=== PATIENT | male | born 1950 | race Caucasian/White ===

== ENCOUNTER → 2024-11-11 | Outpatient (CLI) | payer MEDICARE, OTHER ==
[2024-11-11 11:40] LABS: African American GFR (CKD) 90 (>60 ml/min/1.73 sqM); Blood Urea Nitrogen 12 mg/dL (9-20); Non-African American GFR(CKD) 77 (>60 ml/min/1.73 sqM)
--- NOTE | 2024-11-11 12:44 | CT ---
EXAMINATION TYPE: CT angio chest DATE OF EXAM: 11/11/2024 12:12 PM COMPARISON: None CLINICAL INDICATION: Male, 74 years old with history of J44.9 COPD; TECHNIQUE/CONTRAST: CTA scan of the thorax is performed with IV Contrast, patient injected with 100 mL of Isovue 370, MIP images are created and reviewed these are created on a separate workstation.. CT DLP: 447 mGycm, Automated exposure control for dose reduction was used. FINDINGS: Lungs/Pleura: No evidence of focal consolidation, pleural effusion or pneumothorax. Airway: Large airways are patent. Heart: Size within normal limits. No significant coronary artery calcifications. Vasculature: There is no evidence for a filling defect within the pulmonary vasculature to suggest ac gaetano pulmonary embolism. The pulmonary artery is of normal size. Mediastinum: No gross evidence of adenopathy. Musculoskeletal: Moderate disc degeneration changes are present throughout the thoracolumbar spine se condary to osteophyte formation and facet joint arthropathy. Subcutis lipoma measuring 16 x 14 mm. Fi ndings worse to 17 with endplate sclerosis. Soft Tissues/lymph nodes: Unremarkable. Lower neck: Left multinodular goiter extending into the superior mediastinum. IMPRESSION: 1. No evidence of pulmonary embolism. 2. No evidence for acute process. [facility], , 11/11/2024 12:41 PM
== END | disposition home or self-care (01) ==
LOC: RADCTMAIN 11:04
PROVIDERS: ATTEND Student in an Organized Health Care Education/Training Program
DX: J44.9 Chronic obstructive pulmonary disease, unspecified (principal)
CPT/HCPCS: 82565; 84520; 71275; Q9967

== ENCOUNTER → 2024-12-12 | Outpatient (CLI) | payer MEDICARE, OTHER ==
--- NOTE | 2024-12-12 19:43 | CA ---
Transthoracic Echo Report Name: Remy Bains Age: 74 Gender: M : 1950 Exam Date: 12/12/2024 14:36 Exam Location: [facility] Ht (in): 73 Wt (lb): 230 Ordering Physician: Ishmael Subramanian DO Attending/Referring Phys: Luciana Christine PAC Extractor Operator Solvent Process Rebekah Ferrell RDCS Procedure CPT: Indications: I42.9 CARDIOMYO R07.89 CHEST PAIN R94.31 Cardiac Hx: Technical Quality: Fair Contrast 1: Total Dose (mL): Contrast 2: Total Dose (mL): MEASUREMENTS (Male / Female) Normal Values 2D ECHO LV Diastolic Diameter PLAX 5.6 cm 4.2 - 5.9 / 3.9 - 5.3 cm LV Systolic Diameter PLAX 3.9 cm IVS Diastolic Thickness 1.2 cm 0.6 - 1.0 / 0.6 - 0.9 cm LVPW Diastolic Thickness 1.4 cm 0.6 - 1.0 / 0.6 - 0.9 cm LV Relative Wall Thickness 0.5 RV Internal Dim ED PLAX 3.7 cm LVOT Diameter 2.3 cm LV Diastolic Volume MOD BP 209.6 cm??? 67 - 155 / 56 - 104 cm??? LV Systolic Volume MOD BP 116.6 cm??? - 58 / 19 - 49 cm??? LV Ejection Fraction MOD BP 44.4 % >= 55 % LV Cardiac Index MOD BP 2661.6 cm???/min???m??? LV Diastolic Volume MOD 4C 238.6 cm??? LV Systolic Volume MOD 4C 133.0 cm??? LV Ejection Fraction MOD 4C 44.3 % LV Cardiac Index MOD 4C 3021.4 cm???/min???m??? LV Diastolic Length 4C 9.8 cm LV Systolic Length 4C 8.6 cm LV Diastolic Volume MOD 2C 160.0 cm??? LV Systolic Volume MOD 2C 84.7 cm??? LV Ejection Fraction MOD 2C 47.1 % LV Cardiac Index MOD 2C 2155.7 cm???/min???m??? LV Diastolic Length 2C 8.4 cm LV Systolic Length 2C 7.1 cm LA Volume 58.7 cm??? 18 - 58 / 22 - 52 cm??? LA Volume Index 25.1 cm???/m??? 16 - 28 cm???/m??? DOPPLER LVOT Peak Velocity 93.6 cm/s LVOT Peak Gradient 3.5 mmHg LVOT Velocity Time Integral 22.8 cm LVOT Stroke Volume 90.8 cm??? LVOT Stroke Volume Index 39.7 ml/m??? LVOT Cardiac Index 2596.6 cm???/min???m??? MV Area PHT 2.0 cm??? Mitral E Point Velocity 75.3 cm/s Mitral A Point Velocity 98.7 cm/s Mitral E to A Ratio 0.8 MV Deceleration Time 386.9 ms MV E' Velocity 2.7 cm/s Mitral E to MV E' Ratio 27.5 FINDINGS Left Ventricle Mildly increased septal wall thickness. Severely increased left ventricular diastolic volume. Severely increased left ventricular systolic volume. Moderately decreased left ventricular ejection fraction. Left ventricular ejection fraction is estimated at 45 %. Grade 2 diastolic dysfunction. Right Ventricle Mild right ventricular dilatation. Right ventricular systolic pressure within normal limits. Right Atrium Normal right atrial size. Left Atrium Mildly increased left atrial area. Mitral Valve Structurally normal mitral valve. Mitral valve thickened. Mitral annular calcification. Mild mitral regurgitation. Aortic Valve Trileaflet aortic valve. No aortic valve stenosis or regurgitation. Tricuspid Valve Structurally normal tricuspid valve. Mild tricuspid regurgitation. Pulmonic Valve Structurally normal pulmonic valve. Trace to mild pulmonic regurgitation. Pericardium No pericardial effusion. Aorta Normal size aortic root and proximal ascending aorta. CONCLUSIONS Mildly impaired LV function with EF around 45% Mildly dilated right ventricle Normal pulmonary artery systolic pressure No pericardial effusion Previewed by: Dr. Israel Rincon MD (Electronically Signed) Final Date: 12 December 2024 19:43
== END | disposition home or self-care (01) ==
LOC: RADECHMAIN 14:03
PROVIDERS: ATTEND Family Medicine
DX: I42.9 Cardiomyopathy, unspecified (principal); R07.89 Other chest pain; R94.31 Abnormal electrocardiogram [ECG] [EKG]; I51.7 Cardiomegaly
CPT/HCPCS: 93306

== ENCOUNTER 2024-12-24 15:48 | Observation (INO) | payer OTHER, MEDICARE ==
[2024-12-24] MEDS ORDERED: ALPRAZolam 0.5 MG TAB PO PRN (16:42)
[2024-12-24] MEDS ORDERED: ALPRAZolam 0.25 MG TAB PO PRN (16:42)
[2024-12-24] MEDS ORDERED: NITROGLYCERIN SL TABS 0.4 MG TAB SUBLINGUAL PRN ×2 (16:42→19:06)
--- NOTE | 2024-12-24 16:49 | ED ---
General Adult HPI - General Chief complaint: Chest Pain Stated complaint: chest pain, SOB Time Seen by Provider: 12/24/24 16:00 Source: patient, RN notes reviewed, old records reviewed Mode of arrival: wheelchair Limitations: no limitations - History of Present Illness Initial comments: This is a 74-year-old male who presents to the emergency department who comes in after having taken a stress test today which only lasted a short period time before he got lightheaded dizzy had some chest tightness and some mild shortness of breath. Patient also had an echo that showed some abnormalities. Park Worker Supervisor saw this and wanted the patient to come to the emergency department get worked up and then be admitted for a catheterization in the morning left something acutely was found. Patient currently has no symptoms. - Related Data Home Medications Medication Instructions Recorded Confirmed Aspirin EC [Ecotrin Low Dose] 81 mg PO DAILY 12/24/24 12/24/24 Atorvastatin [Lipitor] 10 mg PO DAILY 12/24/24 12/24/24 Coreg(Unknown Dose) 1 tab PO DAILY 12/24/24 12/24/24 Losartan [Cozaar] 25 mg PO DAILY 12/24/24 12/24/24 Allergies Allergy/AdvReac Type Severity Reaction Status Date / Time No Known Allergies Allergy Verified 12/24/24 17:44 Review of Systems ROS Statement: Those systems with pertinent positive or pertinent negative responses have been documented in the HPI. ROS Other: All systems not noted in ROS Statement are negative. Past Medical History Past Medical History: Unable to Obtain Additional Past Medical History / Comment(s): patient poor historian History of Any Multi-Drug Resistant Organisms: None Reported Past Surgical History: Unable to Obtain, Heart Catheterization Past Psychological History: No Psychological Hx Reported Smoking Status: Light tobacco smoker Past Alcohol Use History: Occasional Past Drug Use History: None Reported General Exam - General Exam Comments Initial Comments: GENERAL: Patient is well-developed and well-nourished. Patient is nontoxic and well- hydrated and is in no acute distress. ENT: Neck is soft and supple. No significant lymphadenopathy is noted. Oropharynx is clear. Moist mucous membranes. Neck has full range of motion without eliciting any pain. EYES: The sclera were anicteric and conjunctiva were pink and moist. Extraocular movements were intact and pupils were equal round and reactive to light. Eyelids were unremarkable. PULMONARY: Unlabored respirations. Good breath sounds bilaterally. No audible rales rhonchi or wheezing was noted. CARDIOVASCULAR: There is a regular rate and rhythm without any murmurs gallops or rubs. ABDOMEN: Soft and nontender with normal bowel sounds. SKIN: Skin is clear with no lesions or rashes and otherwise unremarkable. NEUROLOGIC: Patient is alert and oriented x3. Cranial nerves II through XII are grossly intact. Motor and sensory are also intact. Normal speech, volume and content. Symmetrical smile. MUSCULOSKELETAL: Normal extremities with adequate strength and full range of motion. No lower extremity swelling or edema. No calf tenderness. LYMPHATICS: No significant lymphadenopathy is noted PSYCHIATRIC: Normal psychiatric evaluation. Limitations: no limitations Course Vital Signs 12/24/24 12/24/24 15:59 16:59 Temperature 98.0 F 98.1 F Pulse Rate 68 62 Respiratory 18 18 Rate Blood Pressure 150/80 157/80 O2 Sat by Pulse 99 95 Oximetry Medical Decision Making - Medical Decision Making EKG is interpreted by myself there is a seizure EKG shows a sinus rhythm with frequent PVCs at 71 bpm KS interval is 173 QRS is 130 QT interval is 430 QTc is 453. Patient's EKG shows no ST segment elevation Was pt. sent in by a medical professional or institution ([facility]ANYELL Gee, LIVING COACH, urgent care, hospital, or [facility]...) When possible be specific @ -No Did you speak to anyone other than the patient for history (EMS, parent, family, police, friend...)? What history was obtained from this source @ -No Did you review nursing and triage notes (agree or disagree)? Why? @ -I reviewed and agree with nursing and triage notes Were old charts reviewed (outside hosp., previous admission, EMS record, old EKG, old radiological studies, urgent care reports/EKG's, [facility] records)? Report findings @ -No old charts were reviewed Differential Diagnosis? @ -DM differential chest EKG interpreted by me (3pts min.). @ -As above X-rays interpreted by me (1pt min.). @ -Chest x-ray shows no acute abnormality CT interpreted by me (1pt min.). @ -None done U/S interpreted by me (1pt. min.). @ -None done What testing was considered but not performed or refused? (CT, X-rays, U/S, labs)? Why? @ -None What meds were considered but not given or refused? Why? @ -None Did you discuss the management of the patient with other professionals (professionals i.e. Dr., PA, LIVING COACH, lab, RT, psych nurse, psychiatric social worker supervisor, administrative judge, teacher, aoc airspace control officer, employment evaluator/case manager)? Give summary @ -I spoke with Dr. Perez he agreed to admit the patient Was smoking cessation discussed for >3mins.? @ -No Was critical care preformed (if so, how long)? @ -No Were there social determinants of health that impacted care today? How? (Homelessness, low income, unemployed, alcoholism, drug addiction, transportation, low edu. Level, literacy, decrease access to med. care, [facility], rehab)? @ -No Was there de-escalation of care discussed even if they declined (Discuss DNR or withdrawal of care, Hospice)? DNR status @ -No What co-morbidities impacted this encounter? (DM, HTN, Smoking, COPD, CAD, Cancer, CVA, ARF, Chemo, Hep., AIDS, mental health diagnosis, sleep apnea, morbid obesity)? @ -None Was patient admitted / discharged? Hospital course, mention meds given and route, prescriptions, significant lab abnormalities, going to OR and other pertinent info. @ -Patient's lab work came back within normal range chest x-ray was normal. Dr. Quintero already contacted me and wanted the patient admitted I will admit the patient to Dr. Perez with a consult with Dr. Quintero Undiagnosed new problem with uncertain prognosis? @ -No Drug Therapy requiring intensive monitoring for toxicity (Heparin, Nitro, Insulin, Cardizem)? @ -No Were any procedures done? @ -No Diagnosis/symptom? @ -Chest pain Acute, or Chronic, or Acute on Chronic? @ -acute Uncomplicated (without systemic symptoms) or Complicated (systemic symptoms)? @ -Complicated Side effects of treatment? @ -No Exacerbation, Progression, or Severe Exacerbation? @ -No Poses a threat to life or bodily function? How? (Chest pain, [place], [place], pneumonia, PE, COPD, DKA, ARF, appy, cholecystitis, CVA, Diverticulitis, Homicidal, Suic idal, threat to staff... and all critical care pts) @ -Yes this could lead to an TN and endorgan dysfunction or - Lab Data Result diagrams: 04/23/25 16:52 12/24/24 16:52 Lab Results 12/24/24 12/24/24 12/24/24 Range/Units 16:52 16:52 16:52 WBC 5.84 (4.50-10.00) 10*3/uL RBC 4.50 (4.40-5.60) 10*6/uL Hgb 14.1 (13.0-17.0) g/dL Hct 39.7 (39.6-50.0) % MCV 88.2 (80.0-97.0) fL MCH 31.3 (27.0-32.0) pg MCHC 35.5 (32.0-37.0) g/dL Plt Count 194 (140-440) 10*3/uL MPV 10.3 (9.5-12.2) fL Immature Gran % (Auto) 0.2 % Neutrophils % 67.3 % Lymphocytes % 22.8 % Monocytes % 8.0 % Eosinophils % 1.2 % Basophils % 0.5 % Immature Gran # 0.01 (0.00-0.04) 10*3/uL Neutrophils # 3.93 (1.80-7.70) 10*3/uL Lymphocytes # 1.33 (0.90-5.00) 10*3/uL Monocytes # 0.47 (0.20-1.00) 10*3/uL Eosinophils # 0.07 (0.04-0.35) 10*3/uL Basophils # 0.03 (0.00-0.10) 10*3/uL PT (10.0-12.5) sec INR (<1.2) APTT (22.0-30.0) sec Sodium 138 (137-145) mmol/L Potassium 4.1 (3.5-5.1) mmol/L Chloride 108 H (98-107) mmol/L Carbon Dioxide 20 L (22-30) mmol/L Anion Gap 10 mmol/L BUN 13 (9-20) mg/dL Creatinine 0.82 (0.66-1.25) mg/dL Est GFR (CKD-EPI)AfAm >90 (>60 ml/min/1.73 sqM) Est GFR (CKD-EPI)NonAf 88 (>60 ml/min/1.73 sqM) Glucose 110 H (74-99) mg/dL POC Glucose (mg/dL) (70-110) mg/dL POC Glu Chief Ii Dispatcher ID Calcium 9.1 (8.4-10.2) mg/dL Magnesium 2.0 (1.6-2.3) mg/dL Total Bilirubin 2.2 H (0.2-1.3) mg/dL AST 29 (17-59) U/L ALT 11 (4-49) U/L Alkaline Phosphatase 63 (38-126) U/L Troponin I (0.000-0.034) ng/mL NT-Pro-B Natriuret Pep 1330 pg/mL Total Protein 6.7 (6.3-8.2) g/dL Albumin 4.0 (3.5-5.0) g/dL TSH 0.857 (0.465-4.680) mIU/L 12/24/24 12/24/24 12/24/24 Range/Units 16:52 16:52 16:57 WBC (4.50-10.00) 10*3/uL RBC (4.40-5.60) 10*6/uL Hgb (13.0-17.0) g/dL Hct (39.6-50.0) % MCV (80.0-97.0) fL MCH (27.0-32.0) pg MCHC (32.0-37.0) g/dL Plt Count (140-440) 10*3/uL MPV (9.5-12.2) fL Immature Gran % (Auto) % Neutrophils % % Lymphocytes % % Monocytes % % Eosinophils % % Basophils % % Immature Gran # (0.00-0.04) 10*3/uL Neutrophils # (1.80-7.70) 10*3/uL Lymphocytes # (0.90-5.00) 10*3/uL Monocytes # (0.20-1.00) 10*3/uL Eosinophils # (0.04-0.35) 10*3/uL Basophils # (0.00-0.10) 10*3/uL PT 11.2 (10.0-12.5) sec INR 1.0 (<1.2) APTT 25.0 (22.0-30.0) sec Sodium (137-145) mmol/L Potassium (3.5-5.1) mmol/L Chloride (98-107) mmol/L Carbon Dioxide (22-30) mmol/L Anion Gap mmol/L BUN (9-20) mg/dL Creatinine (0.66-1.25) mg/dL Est GFR (CKD-EPI)AfAm (>60 ml/min/1.73 sqM) Est GFR (CKD-EPI)NonAf (>60 ml/min/1.73 sqM) Glucose (74-99) mg/dL POC Glucose (mg/dL) 147 H (70-110) mg/dL POC Glu Chief Ii Dispatcher ID Sweta Jones Calcium (8.4-10.2) mg/dL Magnesium (1.6-2.3) mg/dL Total Bilirubin (0.2-1.3) mg/dL AST (17-59) U/L ALT (4-49) U/L Alkaline Phosphatase (38-126) U/L Troponin I 0.015 (0.000-0.034) ng/mL NT-Pro-B Natriuret Pep pg/mL Total Protein (6.3-8.2) g/dL Albumin (3.5-5.0) g/dL TSH (0.465-4.680) mIU/L Disposition Clinical Impression: Chest pain Disposition: ADMITTED IP TO THIS HOSP Referrals: Ishmael Subramanian DO [Primary Care Provider] - 1-2 days Time of Disposition: 19:06
[2024-12-24 16:58] LABS: Glucose,Whole Blood 147 mg/dL (70-110)
[2024-12-24] MEDS: LOSARTAN 25 MG TAB PO SCH (17:46)
[2024-12-24] MEDS: carvediloL 3.125 MG TAB PO SCH (17:46)
[2024-12-24 17:50] LABS: Basophils # (A) 0.03 10*3/uL (0.00-0.10); Basophils % (A) 0.5 %; Eosinophils # (A) 0.07 10*3/uL (0.04-0.35); Eosinophils % (A) 1.2 %; HCT 39.7 % (39.6-50.0); HGB 14.1 g/dL (13.0-17.0); Lymphocytes # (A) 1.33 10*3/uL (0.90-5.00); Lymphocytes % (A) 22.8 %; MCH 31.3 pg (27.0-32.0); MCHC 35.5 g/dL (32.0-37.0); MCV 88.2 fL (80.0-97.0); Mean Platelet Volume 10.3 fL (9.5-12.2); Monocytes # (A) 0.47 10*3/uL (0.20-1.00); Neutrophils # (A) 3.93 10*3/uL (1.80-7.70); Neutrophils % (A) 67.3 %; Platelet Count 194 10*3/uL (140-440); RDW 12.5 % (11.5-14.5); WBC 5.84 10*3/uL (4.50-10.00)
[2024-12-24] MEDS: ATORVASTATIN 80 MG TAB PO STA (17:51)
[2024-12-24] MEDS: ASPIRIN 325 MG TAB PO STA (17:51)
--- NOTE | 2024-12-24 17:54 | XR ---
EXAMINATION TYPE: XR chest 2V DATE OF EXAM: 12/24/2024 5:25 PM COMPARISON: CT CLINICAL INDICATION: Male, 74 years old with history of Chest Pain; [facility] TECHNIQUE: XR chest 2V Frontal and lateral views of the chest. FINDINGS: Lungs/Pleura: There is no evidence of pleural effusion, focal consolidation, or pneumothorax. Pulmonary vascularity: Unremarkable. Heart/mediastinum: Cardiomediastinal silhouette is unremarkable. Musculoskeletal: No acute osseous pathology. Other findings: None IMPRESSION: No acute cardiopulmonary disease/process. [facility], , 12/24/2024 5:52 PM
[2024-12-24 17:59] LABS: Prothrombin Time 11.2 sec (10.0-12.5)
[2024-12-24 18:04] LABS: ALT 11 U/L (4-49); African American GFR (CKD) >90 (>60 ml/min/1.73 sqM); Anion Gap 10 mmol/L; Blood Urea Nitrogen 13 mg/dL (9-20); Calcium 9.1 mg/dL (8.4-10.2); Carbon Dioxide 20 mmol/L (22-30); Chloride 108 mmol/L (98-107); Glucose 110 mg/dL (74-99); Non-African American GFR(CKD) 88 (>60 ml/min/1.73 sqM); Sodium 138 mmol/L (137-145); Total Bilirubin 2.2 mg/dL (0.2-1.3); Total Protein 6.7 g/dL (6.3-8.2)
[2024-12-24 18:10] LABS: AST 29 U/L (17-59); Alkaline Phosphatase 63 U/L (38-126); Potassium 4.1 mmol/L (3.5-5.1)
[2024-12-24] MEDS: SODIUM CHLORIDE 0.9% 1,000 ML in EMPTY BAG 1 BAG IV SCH (20:02)
[2024-12-24] MEDS: NITROGLYCERIN OINT 1 INCH/GM PACKET TOPICAL SCH (23:07)
[2024-12-24] MEDS: ATORVASTATIN 40 MG TAB PO SCH (23:07)
--- NOTE | 2024-12-25 02:18 | P.HPIM ---
History of Present Illness H&P Date: 12/24/24 Patient is a 74-year-old male with hypertension, hyperlipidemia here for evaluation of chest tightness. Patient reported that he was seen for an exercise stress test today however the test was aborted because he could only last for 1 min and 43 seconds in which he had experienced chest pressure that was substernal and nonradiating with associated shortness of breath, dizziness and lightheadedness. Echo was done during the stress test and did show some abnormalities. Escort Patients evaluating the patient at the time wanted the patient evaluated in the emergency department and to be admitted for heart catheterization in the morning. He denied palpitations, nausea, vomiting, focal weakness, abdominal pain, loss of consciousness. Echo done on December 12 2024 that showed EF 45% with mildly dilated right ventricle. On admission: Vitals: Temperature 98 Fahrenheit, pulse rate 68, respiratory rate 18, blood pressure 150/80, O2 saturation 99% on room air Labs: WBC 5.84, hemoglobin 14.1, bicarb 28, BUN 13, creatinine 0.82, glucose 110, potassium 4.1, magnesium 2, calcium 9.1. Troponin 0.0 15, proBNP 1330. TSH 0.857. Liver enzymes unremarkable. Coagulation panel unremarkable. Imaging: EKG independently interpreted showed sinus rate with a rate of 71 bpm, SD interval 173 MS prolonged QRS with 130 MS, PVCs noted, QTc 453 MS. Chest x- ray shows no acute cardiopulmonary disease ED documentation reviewed. Aspirin Nitro-Bid ointment and Lipitor initiated in the ED Review of systems: Pertinent positives and negatives as discussed in HPI, a complete review of systems was performed and all other systems are negative. Social history: Tobacco: Active smoker. Smokes 2 to 3 cigarettes a day. Has attempted to quit multiple times longest time he stopped was 15 years. Alcohol: Occasional alcohol intake Recreational drugs: Denied history of recreational or illicit drug use Travel: No recent travel Physical examination: Vital signs reviewed General: non toxic, no distress, appears at stated age, room air Derm: no unusual rashes/lesions, warm Head: atraumatic, normocephalic, symmetric Eyes: EOMI, anicteric sclera, pupils equal round reactive to light ENT: Nose and ears atraumatic Neck: No cervical lymphadenopathy, trachea midline, supple Mouth: no lip lesion, mucus membranes moist Cardiovascular: S1S2 reg, no murmur Lungs: CTA bilateral, no rhonchi, no rales, no accessory muscle use Abdominal: soft, nondistended, nontender to palpation, no guarding Ext: muscle strength 5 out of 5 in all 4 extremities grossly, no gross muscle atrophy, no contractures, positive dorsalis pedis pulse bilateral, no edema Neuro: CN II-XI grossly intact, no gross focal neuro deficits Psych: Alert and oriented x 3, appropriate affect and mood Assessment/Plan: 74-year-old male with hypertension, hyperlipidemia and is an active smoker here for evaluation of chest pressure after positive stress test. The patient is admitted with an anticipated greater than 2 midnight stay for evaluation of CAD and cardiomyopathy Active: #. CAD, likely occlusive #. Cardiomyopathy, likely ischemic with EF 45% December 2024 -Patient has positive exercise stress test -Troponin 0.015 -EKG showed independently interpreted showed sinus rate with a rate of 71 bpm, SD interval 173 MS prolonged QRS with 130 MS, PVCs noted, QTc 453 MS -Cardiac monitoring -Supplemental oxygen as needed -Heart healthy diet. NPO at midnight -Trend troponin -EKG as needed -Nitroglycerin prn for chest pain. 0.4 mg PO or Nitrobid topical -Continue with aspirin 81 mg daily -Continue lipitor 40 mg daily -Check lipid panel, TSH, A1c -Maintain Mag >2 and K >4 -Cardiology consulted. Plan for cath in the morning Chronic Conditions: #. Hyperlipidemia #. Hypertension -Continue losartan and Coreg F: Oral intake N: Heart healthy diet A: Ambulate as needed DVT ppx: SCDs CODE STATUS: Full Discussed with: Patient Anticipated discharge place: Home Brooklynn Anguiano MD PGY-1 Internal Medicine Dictation was produced using Reds[employer] dictation software. please excuse any grammatical, word or spelling errors. I have seen and evaluated the patient today. Discussed with the resident and agree with the residents finding and plan as documented in the resident's note 74 YO M who had failed stress test today who was directed to go to the ER for admission for [facility] Past Medical History Past Medical History: Unable to Obtain Additional Past Medical History / Comment(s): patient poor historian History of Any Multi-Drug Resistant Organisms: None Reported Past Surgical History: Unable to Obtain, Heart Catheterization Past Psychological History: No Psychological Hx Reported Smoking Status: Light tobacco smoker Past Alcohol Use History: Occasional Past Drug Use History: None Reported Medications and Allergies Home Medications Medication Instructions Recorded Confirmed Type Aspirin EC [Ecotrin Low Dose] 81 mg PO DAILY 12/24/24 12/24/24 History Atorvastatin [Lipitor] 10 mg PO DAILY 12/24/24 12/24/24 History Coreg(Unknown Dose) 1 tab PO DAILY 12/24/24 12/24/24 History Losartan [Cozaar] 25 mg PO DAILY 12/24/24 12/24/24 History Allergies Allergy/AdvReac Type Severity Reaction Status Date / Time No Known Allergies Allergy Verified 12/24/24 17:44 Physical Exam Vitals: Vital Signs Temp Pulse Resp BP Pulse Ox 12/24/24 16:59 98.1 F 62 18 157/80 95 12/24/24 15:59 98.0 F 68 18 150/80 99 Intake and Output 12/24/24 12/24/24 12/24/24 06:59 14:59 22:59 Other: Weight 104.326 kg Results CBC & Chem 7: 12/24/24 16:52 12/24/24 16:52 Labs: Abnormal Lab Results - Last 24 Hours (Table) 12/24/24 12/24/24 Range/Units 16:52 16:57 Chloride 108 H (98-107) mmol/L Carbon Dioxide 20 L (22-30) mmol/L Glucose 110 H (74-99) mg/dL POC Glucose (mg/dL) 147 H (70-110) mg/dL Total Bilirubin 2.2 H (0.2-1.3) mg/dL
[2024-12-25 02:45] LABS: Chol/HDL Ratio 2.66 Ratio; LDL Cholesterol,Calculated 49.6 mg/dL (0.0-131.0); VLDL Calculation 15.96 mg/dL (5.00-40.00)
[2024-12-25] MEDS ORDERED: HEPARIN SODIUM,PORCINE (1 ML) 2,500 UNIT in SODIUM CHLORIDE 0.9% 250 ML IRRIGATION PRN (07:00)
[2024-12-25] MEDS ORDERED: HEPARIN SODIUM,PORCINE 10,000 UNIT in SODIUM CHLORIDE 0.9% 1,000 ML IRRIGATION PRN (07:00)
[2024-12-25] MEDS: ASPIRIN 81 MG PO SCH (08:38)
[2024-12-25] MEDS ORDERED: ASPIRIN 325 MG TAB PO SCH (09:00)
[2024-12-25] MEDS: ASPIRIN 81 MG PO STA (10:10)
[2024-12-25 10:47] LABS: Chol/HDL Ratio 2.95 Ratio; LDL Cholesterol,Calculated 46.3 mg/dL (0.0-131.0); VLDL Calculation 19.08 mg/dL (5.00-40.00)
[2024-12-25] MEDS: MIDAZOLAM 2 MG/2 ML VIAL IVP ONE ×2 (10:56→10:59)
[2024-12-25] MEDS: fentaNYL (PF) 50 MCG/ML 2 ML AMP IVP ONE (10:58)
[2024-12-25] MEDS: LIDOCAINE 1% INJ 10MG/ML (20 ML MDV) SQ ONE (10:59)
[2024-12-25] MEDS: VERAPAMIL SYRINGE (5 MG/10 ML) INTRAARTER ONE (11:00)
[2024-12-25] MEDS: HEPARIN SODIUM 1,000 UN/ML (10ML VL) IV ONE (11:04)
[2024-12-25] MEDS: IV FLUID CONTINUATION 1,000 ML IV ONE ×2 (11:11→11:12)
[2024-12-25] MEDS: HEPARIN SODIUM,PORCINE (1 ML) 2,500 UNIT in SODIUM CHLORIDE 0.9% 250 ML IRRIGATION ONE (11:12)
[2024-12-25] MEDS: HEPARIN SODIUM,PORCINE 10,000 UNIT in SODIUM CHLORIDE 0.9% 1,000 ML IRRIGATION ONE (11:13)
[2024-12-25] MEDS: IOPAMIDOL-370 100ML BTL INJ ONE ×2 (11:14)
--- NOTE | 2024-12-25 11:31 | P.CRDCN ---
History of Present Illness Consult date: 12/25/24 Consult reason: chest pain History of present illness: This is a 74-year-old male patient of Dr. Quintero with past medical history of hypertension, dyslipidemia. Patient has been following in the office due to complaints of chest heaviness and shortness of breath with minimal activity. Symptoms have been going on for more than 6 months. Patient underwent stress test yesterday which was positive for ischemia and patient was advised to come into the hospital to be admitted to undergo cardiac catheterization. Patient denies chest pain at rest. He does have chest pain with minimal activity. Blood pressure 143/87, heart rate 53. Pulse ox 98% on room air. -EKG: Sinus rhythm with PVCs -Chest x-ray: No acute process. -Laboratory studies: Troponins negative x 3. CBC and INR within normal limits. BUN 13, creatinine 0.82, potassium 4.1. Triglycerides 95, cholesterol 99, LDL 46. TSH 0.857. -Home cardiac medications: Aspirin 81 mg daily, Coreg 3.125 mg twice daily, losartan 25 mg daily, atorvastatin 20 mg daily. - Echocardiogram performed at [facility] on 12/12/2024 revealed EF 45%, mildly dilated right ventricle, normal pulmonary artery systolic pressure. No pericardial effusion. Review Of Systems: At the time of my exam: CONSTITUTIONAL: Denies fever or chills. HEENT: Denies blurred vision, vision changes, or eye pain. Denies hemoptysis CARDIOVASCULAR: Denies chest pain. Denies orthopnea. Denies PND. Denies palpitations RESPIRATORY: Denies shortness of breath. Reports chest pain with activity. GASTROINTESTINAL: Denies abdominal pain. Denies nausea or vomiting. HEMATOLOGIC: Denies bleeding disorders. GENITOURINARY: Denies any blood in urine. SKIN: Denies puritis. Denies rash. Physical examination: Gen: This is 74-year-old male in no acute distress VS: reviewed HEENT: Head is atraumatic, normocephalic. Pupils equal, round. Sclerae is anicteric. NECK: Supple. No JVD. LUNGS: Clear to auscultation. No wheezes or rhonchi. No intercostal retractions. HEART: Regular rate and rhythm. No murmur. ABDOMEN: Soft No tenderness. EXTREMITIES: No pedal edema. No calf tenderness. NEUROLOGICAL: Patient is awake, alert and oriented x3. Assessment: Unstable angina Abnormal stress echocardiogram Hypertension Dyslipidemia Cardiomyopathy with EF 45%, ischemic versus nonischemic Plan: Resume patient's home cardiac medications Patient has been started on Nitro-Bid ointment every 6 hours Patient has been scheduled for cardiac catheterization with Dr. Quintero today Further recommendations to follow based upon clinical course Thank you kindly for this consultation. Nurse practitioner note has been reviewed, I agree with documented findings and plan of care. Patient was seen and examined. Past Medical History Past Medical History: Unable to Obtain Additional Past Medical History / Comment(s): patient poor historian History of Any Multi-Drug Resistant Organisms: None Reported Past Surgical History: Unable to Obtain, Heart Catheterization Past Psychological History: No Psychological Hx Reported Smoking Status: Light tobacco smoker Past Alcohol Use History: Occasional Past Drug Use History: None Reported Medications and Allergies Home Medications Medication Instructions Recorded Confirmed Type Aspirin EC [Ecotrin Low Dose] 81 mg PO DAILY 12/24/24 12/24/24 History Atorvastatin [Lipitor] 10 mg PO DAILY 12/24/24 12/24/24 History Coreg(Unknown Dose) 1 tab PO DAILY 12/24/24 12/24/24 History Losartan [Cozaar] 25 mg PO DAILY 12/24/24 12/24/24 History Allergies Allergy/AdvReac Type Severity Reaction Status Date / Time No Known Allergies Allergy Verified 12/24/24 17:44 Physical Exam Vitals: Vital Signs Temp Pulse Pulse Resp BP BP Pulse Ox 12/25/24 04:00 53 L 14 136/78 96 12/25/24 01:39 56 L 16 12/24/24 22:21 97.3 F L 58 L 14 132/72 96 12/24/24 21:32 98.0 F 58 L 20 150/93 97 12/24/24 20:37 97.9 F 56 L 17 140/95 99 12/24/24 20:32 56 L 12/24/24 16:59 98.1 F 62 18 157/80 95 12/24/24 15:59 98.0 F 68 18 150/80 99 Intake and Output 12/24/24 12/25/24 12/25/24 22:59 06:59 14:59 Output Total 400 Balance -400 Output: Urine 400 Other: # Voids 1 Weight 104.326 kg 104.3 kg Results 12/24/24 16:52 12/24/24 16:52 Cardiac Enzymes 12/24/24 12/24/24 12/24/24 Range/Units 16:52 16:52 20:26 AST 29 (17-59) U/L Troponin I 0.015 0.014 (0.000-0.034) ng/mL 12/24/24 Range/Units 23:17 AST (17-59) U/L Troponin I 0.014 (0.000-0.034) ng/mL Coagulation 12/24/24 Range/Units 16:52 PT 11.2 (10.0-12.5) sec APTT 25.0 (22.0-30.0) sec Lipids 12/24/24 Range/Units 16:52 Triglycerides 79.80 (0.00-149.00) mg/dL Cholesterol 105.00 (0.00-200.00) mg/dL HDL Cholesterol 39.40 L (40.00-60.00) mg/dL Cholesterol/HDL Ratio 2.66 Ratio CBC 12/24/24 Range/Units 16:52 WBC 5.84 (4.50-10.00) 10*3/uL RBC 4.50 (4.40-5.60) 10*6/uL Hgb 14.1 (13.0-17.0) g/dL Hct 39.7 (39.6-50.0) % Plt Count 194 (140-440) 10*3/uL Comprehensive Metabolic Panel 12/24/24 Range/Units 16:52 Sodium 138 (137-145) mmol/L Potassium 4.1 (3.5-5.1) mmol/L Chloride 108 H (98-107) mmol/L Carbon Dioxide 20 L (22-30) mmol/L BUN 13 (9-20) mg/dL Creatinine 0.82 (0.66-1.25) mg/dL Glucose 110 H (74-99) mg/dL Calcium 9.1 (8.4-10.2) mg/dL AST 29 (17-59) U/L ALT 11 (4-49) U/L Alkaline Phosphatase 63 (38-126) U/L Total Protein 6.7 (6.3-8.2) g/dL Albumin 4.0 (3.5-5.0) g/dL Current Medications Generic Name Dose Route Start Last Admin Trade Name Freq PRN Reason Stop Dose Admin Alprazolam 0.25 mg 12/24/24 16:42 Alprazolam 0.25 Mg Tab PO Q6HR PRN Mild Anxiety Alprazolam 0.5 mg 12/24/24 16:42 Alprazolam 0.5 Mg Tab PO Q6HR PRN Moderate Anxiety Aspirin 81 mg 12/25/24 09:00 Aspirin 81 Mg PO DAILY MARLYS Atorvastatin Calcium 40 mg 12/24/24 21:00 12/24/24 23:07 Atorvastatin 40 Mg Tab PO Not Given HS MARLYS Carvedilol 3.125 mg 12/24/24 18:00 12/25/24 06:14 Carvedilol 3.125 Mg Tab PO 3.125 mg BID-W/MEALS MARLYS Administration Heparin Sodium (Porcine) 10, 1,001 mls @ 999 mls/hr 12/25/24 07:00 000 unit/ Sodium Chloride IRRIGATION 12/25/24 23:00 ONCE PRN INTRA-OP Heparin Sodium (Porcine) 2,500 250.5 mls @ 250 mls/hr 12/25/24 07:00 unit/ Sodium Chloride IRRIGATION 12/25/24 23:00 ONCE PRN INTRA-OP Sodium Chloride 1,000 ml/ IV 1,000 mls @ 104.326 mls/hr 12/24/24 16:45 12/03 12/26 05:28 Solution IV Not Given .[id number] MARLYS 1 ML/KG/HR Losartan Potassium 25 mg 12/24/24 18:00 12/24/24 17:48 Losartan 25 Mg Tab PO Not Given DAILY MARLYS Nitroglycerin 0.4 mg 12/24/24 16:42 Nitroglycerin Sl Tabs 0.4 Mg Tab SUBLINGUAL Q5M PRN Chest Pain Nitroglycerin 1 inch 12/25/24 00:00 12/25/24 05:28 Nitroglycerin Oint 1 Inch/Gm Packet TOPICAL Not Given Q6HR MARLYS Intake and Output 12/24/24 12/25/24 12/25/24 22:59 06:59 14:59 Output Total 400 Balance -400 Output: Urine 400 Other: # Voids 1 Weight 104.326 kg 104.3 kg 12/24/24 16:52 12/24/24 16:52
--- NOTE | 2024-12-25 11:33 | P.CARDCATH ---
Date of Procedure: 12/25/24 Description of Procedure: DIAGNOSTIC CORONARY ANGIOGRAPHY and LEFT HEART CATH REPORT PROCEDURES PERFORMED: Left heart catheterization Selective coronary angiography Moderate conscious sedation 12 mins Right radial access INDICATION: Unstable angina BRIEF HPI: 74-year-old male with history of hypertension dyslipidemia presented to cardiology office because of increased worsening dyspnea on shortness of breath along with substernal chest heaviness with minimal activity. For this he had a echocardiogram and a stress test. His echocardiogram showed an EF of 40% with globally reduced LV systolic function with no major valvular abnormality. He had a stress test done but while doing the stress test he was only able to walk for a minute and had to stop because of chest pressure and shortness of breath. His resting ECG shows sinus rhythm with mild interventricular conduction delay with intermittent PVCs. CONSENT: I have explained the procedural steps of above-mentioned procedures in layman's terms to the patient. I discussed the risks (including but not limited to stroke, emergent vascular or cardiac surgery or ), benefits and alternative therapies for the above-mentioned procedure. I discussed the risks of sedation/analgesia and blood product administration (if indicated). The andrei ent has indicated understanding and acceptance of these risks. Conscious Sedation: Patient's ECG, heart rate, blood pressure, pulse oximetry were monitored throughout the duration of procedure under my direct supervision. 2 mg Versed and 50 mcg Fentanyl were used for induction of moderate conscious sedation. Total duration of moderate concious sedation 12 minutes. PROCEDURAL DETAILS: Patient was prepped and draped in sterile fashion. 1% lidocaine was infiltrated over the right radial artery. Right radial access was obtained via modified seldinger technique. . Medications: 5mg of verapamil was administed in the radial sheet. 6000 Units of Heparin was administed once the catheter reached the aortic root Wires and Catheter used: J wire was advanced under fluroscopy to get to aortic r oot. 5 finnish JR 4 diagnostic catheter was utilized obtain left ventricular pressure and pressure gradint across aortic valve. 5 finnish JR 4 diagnostic catheter was used to selectively engage the right coronary ostium. 5 finnish JL 3.5 diagnostic catheter was utilized to selectively engage the left coronary ostium. Angiographic images were reviewed in detail. Catheter and wire were removed. Radial sheet was flushed. The right radial sheath was removed and a TR band was placed. Patent hemostasis was achieved. The patient tolerated the procedure well. Patient was transported back to the post catheterization holding area in stable condition. TECHNICAL DETAILS Total contrast used: Isovue [60 ml] Complications: [none] Estimated Blood loss: less than 15 ml HEMODYNAMICS: Aortic Pressure: 110/70 mmHg. LV pressure: 112/5 mmHg. LVEDP 12 mmHg. There was no significant gradient across the aortic valve. SELECTIVE CORONARY ARTERIOGRAPHY: LEFT MAIN: The left main is short and large caliber vessel. It trifurcates into the LAD, ramus and circumflex. Left main appears angiographically normal. LEFT ANTERIOR DESCENDING CORONARY ARTERY: LAD is large caliber and reaches up to the apex. Proximal LAD appears angiographically patent. Mid LAD at the bifurcation site of diagonal 2 branch has haziness with 40 to 50% stenosis. Distal LAD appears angiographically patent. LAD gives rise to 3 diagonal branches. The diagonal branches are small and appears angiographically patent RAMUS : Large caliber appears angiographically patent. Reaches up to the distal lateral wall. LEFT CIRCUMFLEX CORONARY ARTERY: It is nondominant vessel. Left circumflex is a moderate caliber vessel. Proximal and mid LCx has mild luminal irregularities. It gives rise to a medium size OM1 branch which appears angiographically patent. And a small AV groove branch which appears any graphically patent. RIGHT CORONARY ARTERY: Dominant vessel. RCA is moderate caliber vessel. Proximal mid RCA has 10 to 20% disease. Distal RCA has mild luminal irregularities. Distally RCA bifurcates into PDA and PL branches which appears angiographically patent IMPRESSION: 40 to 50% mid LAD disease 10 to 20% calcific proximal and mid RCA disease Mild luminal irregularities in LCx Normal LVEDP PLAN: Medical management for mild obstructive CAD Medical management for nonischemic cardiomyopathy Continue aspirin, Lipitor 40, Coreg 3.125 twice daily. Increase losartan to 50 mg daily, Aldactone 25 mg daily, Farxiga 10 mg daily Recommend outpatient cardiac rehab Recommend outpatient PFT Performing Physician Martin Quintero MD, FACC, RPVI Thank you for allowing [facility] to participate in this patient's care. Feel free to reach out in case of any followup questions.
[2024-12-25] MEDS ORDERED: RX INFO: IV CONTRAST WAS GIVEN 1 EACH MISC MISCELLANE PRN (11:35)
[2024-12-25] MEDS: SODIUM CHLORIDE 0.9% 1,000 ML IV SCH (12:00)
--- NOTE | 2024-12-25 13:06 | P.PN ---
Subjective Progress Note Date: 12/25/24 Hospital course: Patient is a pleasant 74-year-old male with a past medical history of hypertension, hyperlipidemia, and nicotine dependence. He presented to the emergency department on with a chief complaint of chest pain/tightness. Patient was undergoing an outpatient stress test which was reportedly aborted secondary to patient's development of chest pressure. Echocardiogram was also reportedly done during this time which was reported to reveal some abnormalities and patient was sent to the emergency department for evaluation with plans for admission and to undergo cardiac cath. Upon arrival to our facility, patient underwent evaluation in emergency department. Vital signs upon arrival show blood pressure 150/80, heart rate 68, respiratory rate 18, temp 98.0 F, and SpO2 of 99% on room air. EKG completed showing normal sinus rhythm with T wave inversion in lateral leads I, aVL, V5 and V6 and occasional PVCs.. Chest x-ray completed negative for acute cardiopulmonary process. Labs completed and reviewed. CBC unremarkable. Coagulation profile normal findings. BMP showing non-anion gap metabolic acidosis with chloride of 108, bicarb of 28, and anion g ap of 10. Blood glucose was 110. Calcium 9.1. Magnesium 2.0. Liver profile showing hyperbilirubinemia with an elevated total bili of 2.2 otherwise normal findings. Troponin was 0.015 with proBNP of 1330. Patient was admitted under our services with consultation to cardiology. Troponins trended overnight resulting at 0.015, 0.014, 0.014. Hemoglobin A1c 5.1%. Lipid profile unremarkable with exception of low HDL of 39.40. TSH normal findings at 0.857. Physical exam: Patient seen and fully evaluated at bedside this morning. He was awaiting to be taken down for cardiac catheterization. He currently denies having any chest pain or pressure or any complaints at rest. Vital signs reviewed and stable. General: Nontoxic, no distress and appears stated age. Derm: Skin warm and dry, normal coloration for ethnicity. Head: Atraumatic, normocephalic and symmetric. Eyes: EOM's intact, no lid lag, and anicteric sclera Mouth: no lip lesions, mucus membranes moist Cardiovascular: regular rate and rhythm with normal S1S2, no murmur, positive posterior tibial pulses bilaterally, and cap refill < 2 seconds. Lungs: Respirations even, regular, and unlabored on room air. Lungs CTA bila terally, no rhonchi, no rales, no wheezing, and no accessory muscle usage. Abdominal: soft, nontender to palpation, no guarding, no appreciable organomegaly Ext: ROM intact. No gross muscle atrophy, no edema, no contractures Neuro: Speech clear, face symmetrical and CN II-XII grossly intact with no noted focal neuro deficits Psych: Alert and oriented to person, place, time, and situation. Appropriate and pleasant affect. Assessment and Plan of Care: Unstable angina with abnormal stress echocardiogram Cardiomyopathy with reduced EF of 45%, unclear if ischemic versus pending cardiac catheterization Hypertension Hyperlipidemia -Cardiology following, discussed plan of care with solvent plant treater and cardiac SCREW DRIVER OPERATOR. Patient undergoing cardiac catheterization today at 11:30 AM -Telemetry monitoring -Troponins trended overnight resulting at 0.015, 0.014, 0.014. Hemoglobin A1c 5.1%. Lipid profile unremarkable with exception of low HDL of 39.40. -Aspirin 81 mg daily, atorvastatin 40 mg nightly, carvedilol 3.125 mg twice daily, Farxiga 10 mg daily, losartan 50 mg daily, and Aldactone 25 mg daily. -Echocardiogram performed at [facility] on 12/12/2024 reported to have revealed a reduced EF 45%, mildly dilated right ventricle, normal pulmonary artery systolic pressure. No pericardial effusion. Nicotine dependence -Patient declined need for nicotine patch. Educated on importance of smoking cessation. Data and imaging reviewed: -Echocardiogram performed at [facility] on 12/12/2024 reported to have revealed a reduced EF 45%, mildly dilated right ventricle, normal pulmonary artery systolic pressure. No pericardial effusion. -Vital signs reviewed. Blood pressure 143/87, heart rate 51, respiratory rate 18, temp 98.0 F, and SpO2 of 98% on room air. -Morning labs reviewed.Troponins trended overnight resulting at 0.015, 0.014, 0.014. Hemoglobin A1c 5.1%. Lipid profile unremarkable with exception of low HDL of 39.40. TSH normal findings at 0.857. CODE STATUS: Full code DVT prophylaxis: Lovenox Discussed with: Patient, RN, solvent plant treater, and cardiac SCREW DRIVER OPERATOR Anticipated discharge date: Pending clinical course Anticipated discharge place: Home Patient was seen independently by Nurse Pracitioner. This document was prepared using [employer] dictation software. Please allow for errors in department manager, while rare they do occur. James Sadler SCREW DRIVER OPERATOR rendered care for this patient independently, reviewed the findings and plan as documented in the note above and agree with plan. I did not physically speak with or examine the patient on this date. Objective - Vital Signs Vital signs: Vital Signs Temp 97.3 F L 12/24/24 22:21 Pulse 53 L 12/25/24 04:00 Resp 14 12/25/24 04:00 BP 136/78 12/25/24 04:00 Pulse Ox 96 12/25/24 04:00 FiO2 Intake & Output 12/24/24 12/25/24 12/25/24 18:59 06:59 18:59 Output Total 400 Balance -400 Weight 104.326 kg 104.3 kg Output: Urine 400 Other: # Voids 1 - Labs CBC & Chem 7: 12/24/24 16:52 12/24/24 16:52 Labs: Abnormal Lab Results - Last 24 Hours (Table) 12/24/24 12/24/24 Range/Units 16:52 16:57 Chloride 108 H (98-107) mmol/L Carbon Dioxide 20 L (22-30) mmol/L Glucose 110 H (74-99) mg/dL POC Glucose (mg/dL) 147 H (70-110) mg/dL Total Bilirubin 2.2 H (0.2-1.3) mg/dL HDL Cholesterol 39.40 L (40.00-60.00) mg/dL
[2024-12-25] MEDS: LOSARTAN 25 MG TAB PO STA (13:24)
[2024-12-25 22:45] VITALS: RESP 16
[2024-12-26 07:03] LABS: HCT 41.4 % (39.6-50.0); HGB 14.4 g/dL (13.0-17.0); MCH 31.2 pg (27.0-32.0); MCHC 34.8 g/dL (32.0-37.0); MCV 89.8 fL (80.0-97.0); Platelet Count 184 10*3/uL (140-440); RBC 4.61 10*6/uL (4.40-5.60); RDW 12.6 % (11.5-14.5); WBC 5.02 10*3/uL (4.50-10.00)
[2024-12-26 07:08] LABS: ALT 10 U/L (4-49); AST 23 U/L (17-59); African American GFR (CKD) >90 (>60 ml/min/1.73 sqM); Alkaline Phosphatase 63 U/L (38-126); Anion Gap 7 mmol/L; Blood Urea Nitrogen 13 mg/dL (9-20); Calcium 9.1 mg/dL (8.4-10.2); Carbon Dioxide 26 mmol/L (22-30); Chloride 107 mmol/L (98-107); Glucose 97 mg/dL (74-99); Magnesium 1.9 mg/dL (1.6-2.3); Non-African American GFR(CKD) 80 (>60 ml/min/1.73 sqM); Sodium 140 mmol/L (137-145); Total Bilirubin 2.6 mg/dL (0.2-1.3); Total Protein 6.8 g/dL (6.3-8.2)
[2024-12-26] MEDS: ENOXAPARIN 40 MG/0.4 ML SYRINGE SQ SCH (08:26)
[2024-12-26] MEDS: LOSARTAN 50 MG TAB PO SCH (08:26)
[2024-12-26] MEDS: SPIRONOLACTONE 25 MG TAB PO SCH (08:26)
[2024-12-26] MEDS: DAPAGLIFLOZIN PROPANEDIOL 10 MG TABLET PO SCH (08:26)
--- NOTE | 2024-12-26 09:35 | CT ---
EXAMINATION TYPE: CT brain elias wo con DATE OF EXAM: 12/26/2024 9:18 AM COMPARISON: None. CLINICAL INDICATION: Male, 74 years old with history of left arm weakness, left arm weakness, pain TECHNIQUE: CT of the brain is performed utilizing 3 mm thick sections through the posterior fossa and 3 mm thick sections through the remaining calvarium. Study is performed within 24 hours of arrival to the hospital. Contrast used: mL of , (none if empty) CT DLP: 1613.3 mGycm, Automated exposure control for dose reduction was used. FINDINGS: No abnormal hyperdensity is present to suggest an acute intracranial hemorrhage. No mass lesion is evident. No acute infarcts are evident. Ventricles and sulci are appropriate for the patient age. Paranasal sinuses and mastoid air cells within the [id number] are clear. IMPRESSIONS: 1. No acute intracranial process. Follow-up MRI can be performed as clinically indicated. CT cervical spine. COMPARISON: None TECHNIQUE: CT of the cervical spine is performed in the axial plane at 2 mm thick sections. Reconstr ucted images in the coronal, and sagittal plane are reviewed on the computer. FINDINGS: No acute fractures are evident. Vertebral body alignment is straightened. No spondylolisthesis evident. There is diffuse loss of disc height throughout the cervical spine. Prevertebral space and posterior spinal lamellar line are intact Vertebral body heights are preserved. No spinal canal stenosis is evident. Uncovertebral joint hypertrophy has severe foraminal stenosis on left at C3-4. Severe left C4-5 aide inal stenosis is present. Severe right and moderate left foraminal stenosis C5-6. IMPRESSION: 1. 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 Some severe right foraminal s tenosis is also noted at C5-6. 2. Diffuse loss of disc height through the cervical spine. 3. No acute osseous abnormality cervical spine [facility], Workstation: [facility], 12/26/2024 9:33 AM
[2024-12-26 12:21] VITALS: BP 161/91; PULSE 52; TEMP 98.3
--- NOTE | 2024-12-26 12:37 | P.CNOR ---
History of Present Illness - [facility] Consult date: 12/26/24 Requesting physician: James Sadler Consult reason: other (Left upper extremity weakness) History of present illness: Patient is a very pleasant 74-year-old male who is seen examined at bedside for further evaluation of his cervical spine. Consultation was placed for left upper extremity weakness. Patient has had CT imaging of his cervical spine. Upon physical examination, patient does not have any left upper extremity weakness. His strength is 5/5 throughout range of motion. He states he has intermittent episodes where after sitting for a while he will feel a pain over his left chest and his entire left arm is weak. Nothing significantly exacerbates his weakness. He does not experience any left upper extremity pain. He has some intermittent chronic reduced range of motion of his cervical spine and some pain with cervical extension, but his symptoms are adequately controlled. He does not feel he needs any evaluation during his admission to the hospital. He continues to undergo further cardiac evaluation. Patient does admit to injury to the cervical spine years ago while working. He denies any recent injuries. He denies any recent changes in his symptoms. He states these intermittent episodes of entire left upper extremity arm weakness have been on going over the past 6 months. Patient is being seen and examined by medicine and cardiology. Past Medical History Past Medical History: Unable to Obtain Additional Past Medical History / Comment(s): patient poor historian History of Any Multi-Drug Resistant Organisms: None Reported Past Surgical History: Unable to Obtain, Heart Catheterization Past Psychological History: No Psychological Hx Reported Smoking Status: Light tobacco smoker Past Alcohol Use History: Occasional Past Drug Use History: None Reported Medications and Allergies Home Medications Medication Instructions Recorded Confirmed Type Aspirin EC [Ecotrin Low Dose] 81 mg PO DAILY 12/24/24 12/24/24 History Atorvastatin [Lipitor] 10 mg PO DAILY 12/24/24 12/24/24 History carvediloL [Coreg] 3.125 mg PO BID 12/25/24 12/25/24 History Dapagliflozin Propanediol [Farxiga] 10 mg PO DAILY 30 Days #30 tab 12/26/24 Rx Losartan [Cozaar] 50 mg PO DAILY 30 Days #30 tab 12/26/24 Rx Spironolactone [Aldactone] 25 mg PO DAILY 30 Days #30 tab 12/26/24 Rx Allergies Allergy/AdvReac Type Severity Reaction Status Date / Time No Known Allergies Allergy Verified 12/24/24 17:44 Physical Examination Osteopathic Statement: *. No significant issues noted on an osteopathic struct ural exam other than those noted in the History and Physical/Consult. Physical exam: Patient is awake, alert, and oriented 3 Vital signs stable Good chest excursion with deep inspiration and expiration Examination of the cervical spine reveals skin is intact with no abrasions, lacerations, or bruises; no erythema, purulence or signs of infection Full range of motion of the cervical spine with adequate flexion, extension, and bilateral rotation Direct Chill Caster strength, thumb strength, interosseous strength, biceps strength, triceps strength, and shoulder strength positive sustained bilaterally Upper extremity strength 5/5 bilaterally Biceps reflex 1+ bilaterally and Brachioradialis reflexes 2+ bilaterally No upper extremity hyperreflexia bilaterally Hoffmans sign negative upper extremity bilaterally Results Pertinent studies: CT of the cervical spine taken on 12/26/2024: C3-4 spondylosis with severe left foraminal stenosis; C4-5 degenerative disc disease and spondylosis with severe left foraminal stenosis; C5-6 significant degenerative disc disease with severe right and moderate left neuroforaminal stenosis; C6-7 significant degenerative disc disease - Labs Labs: Abnormal Lab Results - Last 24 Hours (Table) 12/26/24 Range/Units 06:22 Total Bilirubin 2.6 H (0.2-1.3) mg/dL H & H 12/24/24 12/26/24 Range/Units 16:52 06:22 Hgb 14.1 14.4 (13.0-17.0) g/dL Hct 39.7 41.4 (39.6-50.0) % Coagulation 12/24/24 Range/Units 16:52 INR 1.0 (<1.2) Result Diagrams: 12/26/24 06:22 12/26/24 06:22 Assessment and Plan Assessment: Assessment: Intermittent entire left upper extremity weakness over the past 6 months Multilevel cervical foraminal stenosis most significant at the left at C3-4 and C4-5 and on the right at C5-6 Cervical degenerative disc disease Cervical spondylosis History of cervical injury years ago Cervicalgia Left-sided chest pain Unstable angina with abnormal stress echo Cardiomyopathy Hypertension Hyperlipidemia Nicotine dependence (1) Cardiomyopathy Status: Acute Code(s): I42.9 - CARDIOMYOPATHY, UNSPECIFIED SNOMED Code(s): 66891213 (2) Abnormal stress echo Status: Acute Code(s): R94.39 - ABNORMAL RESULT OF OTHER CARDIOVASCULAR FUNCTION STUDY SNOMED Code(s): 292819302 (3) Left arm weakness Status: Acute Code(s): R29.898 - OTH SYMPTOMS AND SIGNS INVOLVING THE MUSCULOSKELETAL SYSTEM SNOMED Code(s): 221291846 (4) Degenerative cervical disc Status: Acute Code(s): M50.30 - OTHER CERVICAL DISC DEGENERATION, UNSP CERVICAL REGION SNOMED Code(s): 76316974 (5) Cervical spondylosis Status: Acute Code(s): M47.812 - SPONDYLOSIS W/O MYELOPATHY OR RADICULOPATHY, CERVICAL REGION SNOMED Code(s): 853149448 (6) Foraminal stenosis of cervical region Status: Acute Code(s): M48.02 - SPINAL STENOSIS, CERVICAL REGION SNOMED Code(s): 458314398222 (7) Hypertension Status: Acute Code(s): I10 - ESSENTIAL (PRIMARY) HYPERTENSION SNOMED Code(s): 09720369 (8) Hyperlipidemia Status: Acute Code(s): E78.5 - HYPERLIPIDEMIA, UNSPECIFIED SNOMED Code(s): 98458005 (9) Nicotine dependence Status: Acute Code(s): F17.200 - NICOTINE DEPENDENCE, UNSPECIFIED, UNCOMPLICATED SNOMED Code(s): 83639629 (10) Chest pain Status: Acute Code(s): R07.9 - CHEST PAIN, UNSPECIFIED SNOMED Code(s): 99140389 (11) Unstable angina Status: Acute Code(s): I20.0 - UNSTABLE ANGINA SNOMED Code(s): 7993902 Plan: Plan: 1. Consultation was placed for patient's intermittent left upper extremity weakness. Upon physical examination, patient does not have any left upper extremity weakness. His strength is 5/5 throughout range of motion. He states he has intermittent episodes where after sitting for a while he will feel a pain over his left chest and his entire left arm is weak. Nothing significantly exacerbates his weakness. He does not experience any left upper extremity pain. He has some intermittent chronic reduced range of motion of his cervical spine and some pain with cervical extension, but his symptoms are adequately controlled. He does have multilevel degenerative change at his cervical spine with multilevel foraminal stenosis most significant at C3-4, C4-5, and C5-6. Currently, his symptoms do not appear to relate specifically to his cervical spine. He is neurovascular intact. He does not have any symptoms that correla te well currently with his cervical spine. We did discuss his degenerative change at his cervical spine. He will be cleared for discharge from orthopedic spine standpoint. We are not currently planning for further evaluation or imaging during his admission to the hospital. He would like to follow-up in the outpatient setting. Patient may follow-up with Todd Tyson PA-C or Dr. Jenaro Rivera at [facility] in 2-3 weeks following discharge. 2. Patient will continue be seen exam by multiple other medical providers including medicine and cardiology. The patient is seen and reviewed. Case reviewed as well as the imaging. The patient has full strength in his upper extremities currently and his symptoms do not specifically correlate with his cervical spine. He is neurovascularly intact. He does have some degenerative changes at his cervical spine but I would not recommend any acute further imaging or intervention for his spine at this point. It is okay for him to follow-up on an outpatient basis. Time with Patient: Greater than 30 (Including obtaining history, physical examination, reviewing of imaging, and dictation.)
--- NOTE | 2024-12-26 12:43 | P.DS ---
Providers Date of admission: 12/24/24 19:07 Expected date of discharge: 12/26/24 Attending physician: Roddy Perez Consults: 12/24/24 19:06 Consult Physician Urgent Consulting Provider: Martin Quintero Consult Reason/Comments: Chest pain Do you want consulting provider notified?: Yes 12/26/24 08:48 Consult Physician Urgent Consulting Provider: Haider Nino Consult Reason/Comments: LUE weakness Do you want consulting provider notified?: Yes 12/26/24 09:53 Consult Physician Urgent Consulting Provider: Tanvir Rivera Consult Reason/Comments: left upper extremity weakness secondary to severy left foraminal stenosis Do you want consulting provider notified?: Yes Primary care physician: Ishmael Subramanian Hospital Course: Discharge Diagnosis: Unstable angina with abnormal stress echocardiogram Cardiomyopathy with reduced EF of 45%, likely nonischemic Severe left foraminal stenosis and severe right foraminal stenosis of C5-C6 with intermittent left upper extremity numbness/weakness Hypertension Hyperlipidemia Nicotine dependence Hospital Course: Patient is a pleasant 74-year-old male with a past medical history of hypertension, hyperlipidemia, and nicotine dependence. He presented to the emergency department on with a chief complaint of chest pain/tightness. Patient was undergoing an outpatient stress test which was reportedly aborted secondary to patient's development of chest pressure. Echocardiogram was also reportedly done during this time which was reported to reveal some abnormalities and patient was sent to the emergency department for evaluation with plans for admission and to undergo cardiac cath. Upon arrival to our facility, patient underwent evaluation in emergency department. Vital signs upon arrival show blood pressure 150/80, heart rate 68, respiratory rate 18, temp 98.0 F, and SpO2 of 99% on room air. EKG completed showing normal sinus rhythm with T wave inversion in lateral leads I, aVL, V5 and V6 and occasional PVCs.. Chest x-ray completed negative for acute cardiopulmonary process. Labs completed and reviewed. CBC unremarkable. Coagulation profile normal findings. BMP showing non-anion gap metabolic acidosis with chloride of 108, bicarb of 28, and anion gap of 10. Blood glucose was 110. Calcium 9.1. Magnesium 2.0. Liver profile showing hyperbilirubinemia with an elevated total bili of 2.2 otherwise normal findings. Troponin was 0.015 with proBNP of 1330. Patient was admitted under our services with consultation to cardiology. Troponins trended overnight resulting at 0.015, 0.014, 0.014. Hemoglobin A1c 5.1%. Lipid profile unremarkable with exception of low HDL of 39.40. TSH normal findings at 0.857. Patient was taken for cardiac catheterization on 12/25/2024 revealing 40 to 50% mid LAD stenosis, 10 to 20% calcified proximal and mid RCA disease and mild luminal irregularities in left circumflex. Upon awakening this morning, patient reporting left upper extremity numbness and weakness. Order placed for CT brain and cervical spine and consult to neurology. CT brain was negative for acute intracranial process. CT cervical spine showing severe left foraminal stenosis of upper cervical spine with severe right foraminal stenosis at C5-6. Consult placed to orthospine surgical team. Neurology evaluated recommended EEG. Patient declining wanting to be discharged at this time stating symptoms have resolved discussed with neurologist symptoms likely secondary to cervical stenosis and okayed to discontinue EEG. Orthospine evaluated and discussed options with patient, secondary to ongoing symptoms intermittently over the past now reported 3 months orthospine surgery team stating patient can follow-up outpatient for further evaluation and MRI. Patient has been cleared from cardiac perspective and is medically optimized for discharge at this time. Patient to follow-up outpatient with PCP in 1 to 2 days, cardiology in 1 week, and orthospine surgery team in 2-3 weeks. Physical exam: Vital signs reviewed and stable. General: Nontoxic, no distress and appears stated age. Derm: Skin warm and dry, normal coloration for ethnicity. Head: Atraumatic, normocephalic and symmetric. Eyes: EOM's intact, no lid lag, and anicteric sclera Mouth: no lip lesions, mucus membranes moist Cardiovascular: regular rate and rhythm with normal S1S2, no murmur, positive posterior tibial pulses bilaterally, and cap refill < 2 seconds. Lungs: Respirations even, regular, and unlabored on room air. Lungs CTA bilaterally, no rhonchi, no rales, no wheezing, and no accessory muscle usage. Abdominal: soft, nontender to palpation, no guarding, no appreciable organomegaly Ext: ROM intact. No gross muscle atrophy, no edema, no contractures Neuro: Speech clear, face symmetrical and CN II-XII grossly intact with no noted focal neuro deficits Psych: Alert and oriented to person, place, time, and situation. Appropriate and pleasant affect. A total of 33 minutes of time were spent preparing this complex discharge summary. Pt was discharged on 12/26/2024 at 12:41 PM. Patient was seen independently by Nurse Practitioner. This document was prepared using hereO dictation software. Please allow for errors in loss claim clerk while rare they do occur. James Sadler NP rendered care for this patient independently, reviewed the findings and plan as documented in the note above. I did not physically speak with or examine the patient on this date. Patient Condition at Discharge: Stable Plan - Discharge Summary Discharge Rx Participant: No New Discharge Prescriptions: New Spironolactone [Aldactone] 25 mg PO DAILY 30 Days #30 tab Dapagliflozin Propanediol [Farxiga] 10 mg PO DAILY 30 Days #30 tab Losartan [Cozaar] 50 mg PO DAILY 30 Days #30 tab Continue Aspirin EC [Ecotrin Low Dose] 81 mg PO DAILY Atorvastatin [Lipitor] 10 mg PO DAILY carvediloL [Coreg] 3.125 mg PO BID Discontinued Losartan [Cozaar] 25 mg PO DAILY Discharge Medication List Aspirin EC [Ecotrin Low Dose] 81 mg PO DAILY 12/24/24 [History] Atorvastatin [Lipitor] 10 mg PO DAILY 12/24/24 [History] carvediloL [Coreg] 3.125 mg PO BID 12/25/24 [History] Dapagliflozin Propanediol [Farxiga] 10 mg PO DAILY 30 Days #30 tab 12/26/24 [Rx] Losartan [Cozaar] 50 mg PO DAILY 30 Days #30 tab 12/26/24 [Rx] Spironolactone [Aldactone] 25 mg PO DAILY 30 Days #30 tab 12/26/24 [Rx] Follow up Appointment(s)/Referral(s): Martin Quintero MD [Medical Doctor] - 01/06/25 3:45 pm Todd Tyson PAC [PHYSICIAN SOUND EFFECTS SUPERVISOR] - 3 Weeks (Patient may follow-up with Todd Tyson PA-C or Dr. Jenaro Rivera at [facility] in 2-3 weeks following discharge. ) Ishmael Subramanian DO [Primary Care Provider] - 12/30/24 9:00 am (At the [facility]) Patient Instructions/Handouts: *Surgery [facility] - After Heart Catheterization - Internal Specialist Instructions, Chest Pain (DC), How to Stop Smoking (DC), Cervical Spinal Stenosis (DC) Discharge Disposition: HOME SELF-CARE
--- NOTE | 2024-12-26 12:47 | P.PN ---
Subjective Progress Note Date: 12/26/24 Consult reason: chest pain History of present illness: This is a 74-year-old male patient of Dr. Quintero with past medical history of hypertension, dyslipidemia. Patient has been following in the office due to complaints of chest heaviness and shortness of breath with minimal activity. Symptoms have been going on for more than 6 months. Patient underwent stress test yesterday which was positive for ischemia and patient was advised to come into the hospital to be admitted to undergo cardiac catheterization. Patient denies chest pain at rest. He does have chest pain with minimal activity. Blood pressure 143/87, heart rate 53. Pulse ox 98% on room air. -EKG: Sinus rhythm with PVCs -Chest x-ray: No acute process. -Laboratory studies: Troponins negative x 3. CBC and INR within normal limits. BUN 13, creatinine 0.82, potassium 4.1. Triglycerides 95, cholesterol 99, LDL 46. TSH 0.857. -Home cardiac medications: Aspirin 81 mg daily, Coreg 3.125 mg twice daily, losartan 25 mg daily, atorvastatin 20 mg daily. - Echocardiogram performed at [facility] on 12/12/2024 revealed EF 45%, mildly dilated right ventricle, normal pulmonary artery systolic pressure. No pericardial effusion. 12/26 Patient seen and examined. Patient complained to the staff about left upper extremity weakness or numbness that had been going on for long period of time a nd consult was added for orthopedic and neurology to evaluate. At this time, patient denies chest pain or chest pressure no chest tightness, no shortness of breath. Blood pressure 150/76, heart rate 53, pulse ox 97% on room air. Repeat BUN and creat are within normal limits. Patient has refused to take Aldactone and Farxiga. Patient may discuss this with Dr. Quintero when he has follow-up in the office. Physical examination: Gen: This is 74-year-old male in no acute distress VS: reviewed HEENT: Head is atraumatic, normocephalic. Pupils equal, round. Sclerae is anicteric. NECK: Supple. No JVD. LUNGS: Clear to auscultation. No wheezes or rhonchi. No intercostal retractions. HEART: Regular rate and rhythm. No murmur. ABDOMEN: Soft No tenderness. EXTREMITIES: No pedal edema. No calf tenderness. NEUROLOGICAL: Patient is awake, alert and oriented x3. Assessment: Unstable angina Abnormal stress echocardiogram Hypertension Dyslipidemia Cardiomyopathy with EF 45%, ischemic versus nonischemic Plan: Continue patient's current cardiac medications Discontinue Nitropaste Patient is cleared for discharge from cardiology and may follow-up in the office with Dr. Quintero in 1 to 2 weeks. Nurse practitioner note has been reviewed, I agree with documented findings and plan of care. Patient was seen and examined. Objective - Vital Signs Vital signs: Vital Signs Temp 98.2 F 12/26/24 08:00 Pulse 58 L 12/26/24 08:00 Resp 16 12/26/24 08:00 BP 110/57 12/26/24 08:00 Pulse Ox 97 12/26/24 08:00 FiO2 Intake & Output 12/25/24 12/26/24 12/26/24 18:59 06:59 18:59 Intake Total 2404 240 240 Balance 2404 240 240 Weight 104.2 kg Intake: IV 1900 Sodium Chloride 0.9% 1, 900 000 ml @ 100 mls/hr IV . Q10H [facility] Rx#:[id number] Oral 504 240 240 Other: Voiding Method Toilet Toilet # Voids 4 1 1 - Labs CBC & Chem 7: 12/26/24 06:22 12/26/24 06:22 Labs: Abnormal Lab Results - Last 24 Hours (Table) 12/25/24 12/26/24 Range/Units 05:43 06:22 Total Bilirubin 2.6 H (0.2-1.3) mg/dL HDL Cholesterol 33.60 L (40.00-60.00) mg/dL
--- NOTE | 2024-12-26 13:04 | P.CNNES ---
History of Present Illness Consult date: 12/26/24 Requesting physician: James Sadler Reason for Consult: left upper extremity weakness History of Present Illness: This is a 74-year-old gentleman who states he has been having intermittent weakness of the left upper extremity for the last 6 months. Ask her if he has any neck pain he stated no then after 10 minutes of the history she stated that he does have chronic ongoing neck pain from an old injury and he stated that he fell in a grocery store. He denies any radicular symptoms. He states that he has this left upper extremity weakness that can be time. He does not lose consciousness. He does not have any history of seizures. He denies any history of strokes. He denies any numbness in the upper or lower extremities. Denies any visual disturbance. Some of the workup during this hospital visit consisted of: CT of the head is reported as no acute intracranial process. I personally reviewed the CT and agree with the report. CT of the cervical spine is reported as severe left foraminal stenosis upper ce rvical spine discussed above. Some severe right foraminal stenosis is also noted at C5-C6. Diffuse loss of disc height throughout the cervical spine. No acute osseous abnormality cervical spine. Review of Systems As per HPI. Past Medical History Past Medical History: Unable to Obtain Additional Past Medical History / Comment(s): patient poor historian History of Any Multi-Drug Resistant Organisms: None Reported Past Surgical History: Unable to Obtain, Heart Catheterization Past Psychological History: No Psychological Hx Reported Smoking Status: Light tobacco smoker Past Alcohol Use History: Occasional Past Drug Use History: None Reported Medications and Allergies Home Medications Medication Instructions Recorded Confirmed Type Aspirin EC [Ecotrin Low Dose] 81 mg PO DAILY 12/24/24 12/24/24 History Atorvastatin [Lipitor] 10 mg PO DAILY 12/24/24 12/24/24 History carvediloL [Coreg] 3.125 mg PO BID 12/25/24 12/25/24 History Dapagliflozin Propanediol [Farxiga] 10 mg PO DAILY 30 Days #30 tab 12/26/24 Rx Losartan [Cozaar] 50 mg PO DAILY 30 Days #30 tab 12/26/24 Rx Spironolactone [Aldactone] 25 mg PO DAILY 30 Days #30 tab 12/26/24 Rx Allergies Allergy/AdvReac Type Severity Reaction Status Date / Time No Known Allergies Allergy Verified 12/24/24 17:44 Physical Examination - Vital Signs Vital Signs: Vital Signs Temp Pulse Pulse Resp BP Pulse Ox 12/26/24 11:35 98.3 F 52 L 16 161/91 100 12/26/24 08:25 98.4 F 53 L 16 150/76 97 12/26/24 08:00 53 L 16 12/26/24 03:00 59 L 16 117/46 94 L 12/26/24 00:00 52 L 16 132/72 99 12/25/24 19:40 98.0 F 57 L 16 150/87 97 12/25/24 18:58 65 175/93 12/25/24 16:00 97.3 F L 58 L 14 156/93 97 12/25/24 13:20 55 L 144/77 Intake and Output 12/25/24 12/26/24 12/26/24 22:59 06:59 14:59 Intake Total 1290 358 Balance 1290 358 Intake: IV 900 Sodium Chloride 0.9% 1, 900 000 ml @ 100 mls/hr IV . Q10H [facility] Rx#:[id number] Oral 390 358 Other: Voiding Method Toilet Toilet Toilet # Voids 4 1 1 Weight 104.2 kg GENERAL: The patient is lying in bed and is not in acute distress. NEUROLOGICAL: Higher mental function: The patient is awake, alert, oriented to self, place and time. Patient is following commands. No aphasia and no neglect. Cranial nerves: The pupils are round, equal and reactive to light and accommodation. Visual magdaleno are full to confrontation throughout. Extraocular movement is intact no nystagmus is noted. Facial sensation is normal to touch throughout. The facial strength is normal throughout. Hearing is normal bilaterally to hand rub. Tongue is midline and moved [id number] without any difficulty. No dysarthria is noted. Shoulder shrug is normal bilaterally. Motor: The strength is 5 over 5 throughout. Normal tone and bulk. Cerebellum: Normal finger to nose heel to [place] bilaterally. Sensation: Sensation is normal to touch throughout. Reflexes (right/left): left triceps is 0-1. Otherwise rest are 2+. Plantars are downgoing bilaterally. Results - Laboratory Findings CBC and BMP: 12/26/24 06:22 12/26/24 06:22 Abnormal Lab Findings: Abnormal Labs 12/24/24 12/24/24 12/25/24 16:52 16:57 05:43 Chloride 108 H Carbon Dioxide 20 L Glucose 110 H POC Glucose (mg/dL) 147 H Total Bilirubin 2.2 H HDL Cholesterol 39.40 L 33.60 L 12/26/24 06:22 Chloride Carbon Dioxide Glucose POC Glucose (mg/dL) Total Bilirubin 2.6 H HDL Cholesterol Assessment and Plan Assessment: Is a 74-year-old gentleman who presents emergency department because of light headedness with chest tightness and some shortness of breath. He is complaining of intermittent left upper extremity weakness for the last 6 months and he has chronic ongoing neck pain. CT of the head is unremarkable and CT cervical reveals severe left foraminal stenosis upper cervical spine and some severe right foraminal stenosis over C5-C6. Patient intermittent left upper extremity weakness is due to severe upper cervical stenosis on the left/cervical radiculopathy Chest pain Chronic neck pain Plan: On examination patient had no focal deficit. Agree with the primary of pursuing MRI of the cervical spine Agree with orthopedic consultation No Need for the EEG Defer the rest of the medical manage of the primary and other specialist. Thank you for the consultation Time with Patient: Greater than 30
--- NOTE | 2024-12-26 14:21 | P.PN ---
Subjective Progress Note Date: 12/26/24 Hospital course: Patient is a pleasant 74-year-old male with a past medical history of hypertension, hyperlipidemia, and nicotine dependence. He presented to the emergency department on with a chief complaint of chest pain/tightness. Patient was undergoing an outpatient stress test which was reportedly aborted secondary to patient's development of chest pressure. Echocardiogram was also reportedly done during this time which was reported to reveal some abnormalities and patient was sent to the emergency department for evaluation with plans for admission and to undergo cardiac cath. Upon arrival to our facility, patient underwent evaluation in emergency department. Vital signs upon arrival show blood pressure 150/80, heart rate 68, respiratory rate 18, temp 98.0 F, and SpO2 of 99% on room air. EKG completed showing normal sinus rhythm with T wave inversion in lateral leads I, aVL, V5 and V6 and occasional PVCs.. Chest x-ray completed negative for acute cardiopulmonary process. Labs completed and reviewed. CBC unremarkable. Coagulation profile normal findings. BMP showing non-anion gap metabolic acidosis with chloride of 108, bicarb of 28, and anion gap of 10. Blood glucose was 110. Calcium 9.1. Magnesium 2.0. Liver profile showing hyperbilirubinemia with an elevated total bili of 2.2 otherwise normal findings. Troponin was 0.015 with proBNP of 1330. Patient was admitted under our services with consultation to cardiology. Troponins trended overnight resulting at 0.015, 0.014, 0.014. Hemoglobin A1c 5.1%. Lipid profile unremarkable with exception of low HDL of 39.40. TSH normal findings at 0.857. Patient was taken for cardiac catheterization on 12/25/2024 revealing 40 to 50% mid LAD stenosis, 10 to 20% calcified proximal and mid RCA disease and mild luminal irregularities in left circumflex. Physical exam: Patient seen and fully evaluated at bedside this morning. Initial plan was for discharge this morning, however patient reporting left upper extremity numbness. Patient reports he has been experiencing intermittent numbness of left upper extremity over the past 3 weeks along with headache. Currently patient reports numbness to left superior lateral region of chest and left shoulder and down left arm along with left lateral thigh. Unclear of what time this actually began as patient reports awakening this morning with it. Order placed for CT head and cervical spine. Consult to neurology, and neurochecks. Patient's blood glucose was 97. NIH was 1. Vital signs reviewed and stable. General: Nontoxic, no distress and appears stated age. Derm: Skin warm and dry, normal coloration for ethnicity. Head: Atraumatic, normocephalic and symmetric. Eyes: EOM's intact, no lid lag, and anicteric sclera Mouth: no lip lesions, mucus membranes moist Cardiovascular: regular rate and rhythm with normal S1S2, no murmur, positive posterior tibial pulses bilaterally, and cap refill < 2 seconds. Lungs: Respirations even, regular, and unlabored on room air. Lungs CTA bilaterally, no rhonchi, no rales, no wheezing, and no accessory muscle usage. Abdominal: soft, nontender to palpation, no guarding, no appreciable organomegaly Ext: ROM intact. No gross muscle atrophy, no edema, no contractures Neuro: Speech clear, face symmetrical and CN II-XII grossly intact with no noted focal neuro deficits Psych: Alert and oriented to person, place, time, and situation. Appropriate and pleasant affect. Assessment and Plan of Care: Unstable angina with abnormal stress echocardiogram Cardiomyopathy with reduced EF of 45%, unclear if ischemic versus pending cardiac catheterization Hypertension Hyperlipidemia -Cardiology following, discussed plan of care with cook soup and cardiac [employer] MACHINE TENDER clearing patient from cardiac perspective for discharge. -Telemetry monitoring -Troponins trended overnight resulting at 0.015, 0.014, 0.014. Hemoglobin A1c 5.1%. Lipid profile unremarkable with exception of low HDL of 39.40. -Aspirin 81 mg daily, atorvastatin 40 mg nightly, carvedilol 3.125 mg twice daily, Farxiga 10 mg daily, losartan 50 mg daily, and Aldactone 25 mg daily. -Echocardiogram performed at [facility] on 12/12/2024 reported to have revealed a reduced EF 45%, mildly dilated right ventricle, normal pulmonary artery systolic pressure. No pericardial effusion. Left upper extremity numbness/weakness -Order placed for stat CT head and cervical spine -Neurochecks every 4 hours -NIH stroke scale -Consult to neurologist and discussed plan of care with Dr. Nino. - Continue aspirin and atorvastatin. Nicotine dependence -Patient declined need for nicotine patch. Educated on importance of smoking cessation. Data and imaging reviewed: -Vital signs reviewed. Blood pressure 150/76, heart rate 53, respiratory rate 16, temp 98.4 F, and SpO2 of 97% on room air -Morning labs reviewed.CBC, BMP, unremarkable. Liver profile showing elevated total bili of 2.6 otherwise normal findings. CODE STATUS: Full code DVT prophylaxis: Lovenox Discussed with: Patient, RN, cook soup, and cardiac [employer] MACHINE TENDER Anticipated discharge date: Pending clinical course Anticipated discharge place: Home Patient was seen independently by Nurse Pracitioner. This document was prepared using [employer] dictation software. Please allow for errors in whizzer hand, while rare they do occur. James Sadler, SLIVER [employer] MACHINE TENDER rendered care for this patient independently, reviewed the findings and plan as documented in the note above and agree with plan. I did not physically speak with or examine the patient on this date. Objective - Vital Signs Vital signs: Vital Signs Temp 98.0 F 12/25/24 19:40 Pulse 59 L 12/26/24 03:00 Resp 16 12/26/24 03:00 BP 117/46 12/26/24 03:00 Pulse Ox 94 L 12/26/24 03:00 FiO2 Intake & Output 12/25/24 12/26/24 12/26/24 18:59 06:59 18:59 Intake Total 2404 240 240 Balance 2404 240 240 Weight 104.2 kg Intake: IV 1900 Sodium Chloride 0.9% 1, 900 000 ml @ 100 mls/hr IV . Q10H MARLYS Rx#:[id number] Oral 504 240 240 Other: Voiding Method Toilet # Voids 4 1 - Labs CBC & Chem 7: 12/26/24 06:22 12/26/24 06:22 Labs: Abnormal Lab Results - Last 24 Hours (Table) 12/25/24 12/26/24 Range/Units 05:43 06:22 Total Bilirubin 2.6 H (0.2-1.3) mg/dL HDL Cholesterol 33.60 L (40.00-60.00) mg/dL
== END 2024-12-26 14:15 | disposition home or self-care (01) ==
LOC: EC 15:48 → OBSVTOIN 19:07 → 3SCARD 19:07 → INTOOBSV 19:07 → 3SCARD 20:16
PROVIDERS: ADMIT Student in an Organized Health Care Education/Training Program; ATTEND Student in an Organized Health Care Education/Training Program
DX: I25.110 Atherosclerotic heart disease of native coronary artery with unstable angina pectoris (principal); I42.9 Cardiomyopathy, unspecified; I49.3 Ventricular premature depolarization; R17 Unspecified jaundice; M48.02 Spinal stenosis, cervical region; M47.22 Other spondylosis with radiculopathy, cervical region; M50.10 Cervical disc disorder with radiculopathy, unspecified cervical region; E78.5 Hyperlipidemia, unspecified; E87.20 Acidosis, unspecified; I10 Essential (primary) hypertension; F17.210 Nicotine dependence, cigarettes, uncomplicated; G89.29 Other chronic pain; Z79.82 Long term (current) use of aspirin; Z79.84 Long term (current) use of oral hypoglycemic drugs; Z79.899 Other long term (current) drug therapy
CPT/HCPCS: 99285; 36415; 93005; 93458; 83880; 80061 ×2; 80053 ×2; 84443; 83735 ×2; 84484; 85025; 85027; 85610; 85730; 83036; 71046; 72125; 70450; G0378 ×3; C1894; C1769; J2250; J1644 ×3; J2003; J3010; Q9967

== ENCOUNTER → 2025-02-10 | Outpatient (CLI) | payer OTHER | LOC: CPPFTMAIN 10:54 | PROVIDERS: ATTEND Family Medicine | DX: R06.00 Dyspnea, unspecified (principal) | CPT/HCPCS: 94060; 94726; 94729 ==